=== PATIENT | female | born 1955 | race Caucasian/White ===

== ENCOUNTER → 2020-05-13 | Outpatient (CLI) | payer MEDICARE | LOC: RAD 07:30 | DX: E21.5 Disorder of parathyroid gland, unspecified (principal) ==

== ENCOUNTER → 2020-07-29 | Outpatient (CLI) | payer MEDICARE ==
[2020-07-29 16:06] LABS: EOS # 0.1 (0.04-0.40); EOS % 2.5 % (1.0-5.0); HEMATOCRIT 41.3 % (37.0-47.0); HEMOGLOBIN 13.2 g/dL (12.5-16.0); LYMPH# 1.8 (1.50-4.00); MEAN CELL VOLUME 90 fl (78-100); MEAN CORPUSCULAR HEMOGLOBIN 29 pg (27-31); MEAN CORPUSCULAR HGB CONC 32 g/dL (33-37); MEAN PLATELET VOLUME 9.3 fl (7.4-10.4); MONO # 0.4 (0.20-0.80); NEU # 3.2 (1.40-6.50); PLATELET COUNT 256 K/mm3 (130-400); RED BLOOD COUNT 4.59 M/mm3 (4.10-5.30); RED CELL DISTRIBUTION WIDTH 13.4 % (11.5-14.5); WHITE BLOOD COUNT 5.5 K/mm3 (4.8-10.8)
[2020-07-29 16:16] LABS: ALBUMIN 4.2 g/dL (3.4-4.8); POTASSIUM 4.5 mmol/L (3.5-5.1)
[2020-07-29 16:17] LABS: CALCIUM 9.5 mg/dL (8.3-10.5)
[2020-07-29 16:18] LABS: TOTAL PROTEIN 7.2 g/dL (6.2-8.1)
[2020-07-29 16:20] LABS: TOTAL BILIRUBIN 0.3 mg/dL (0.2-1.2)
[2020-07-29 16:25] LABS: MAGNESIUM 1.95 mg/dL (1.60-2.60)
== END ==
LOC: LAB 15:53
PROVIDERS: Family Medicine
DX: L23.9 Allergic contact dermatitis, unspecified cause (principal); R53.83 Other fatigue

== ENCOUNTER → 2020-08-03 | Outpatient (CLI) | payer MEDICARE ==
[2020-08-05 13:22] LABS: ANA SCREEN with REFLEX Negative (Negative)
== END ==
LOC: LAB 15:34
PROVIDERS: Physician Assistant
DX: Z01.89 Encounter for other specified special examinations (principal)

== ENCOUNTER → 2020-08-26 | Outpatient (CLI) | payer MEDICARE ==
[2020-08-26 07:51] LABS: HEMATOCRIT 40.5 % (37.0-47.0); MEAN PLATELET VOLUME 9.6 fl (7.4-10.4); RED BLOOD COUNT 4.49 M/mm3 (4.10-5.30); RED CELL DISTRIBUTION WIDTH 13.7 % (11.5-14.5); WHITE BLOOD COUNT 4.7 K/mm3 (4.8-10.8)
[2020-08-26 07:59] LABS: POTASSIUM 4.1 mmol/L (3.5-5.1)
[2020-08-26 08:00] LABS: CALCIUM 9.1 mg/dL (8.3-10.5)
[2020-08-26 08:01] LABS: TOTAL PROTEIN 6.7 g/dL (6.2-8.1)
[2020-08-26 08:03] LABS: TOTAL BILIRUBIN 0.4 mg/dL (0.2-1.2)
[2020-08-27 19:07] LABS: ANA SCREEN with REFLEX Negative (Negative)
== END ==
LOC: LAB 07:00
PROVIDERS: Family Medicine
DX: Z13.6 Encounter for screening for cardiovascular disorders (principal); E55.9 Vitamin D deficiency, unspecified; E21.3 Hyperparathyroidism, unspecified; E07.9 Disorder of thyroid, unspecified; K57.90 Diverticulosis of intestine, part unspecified, without perforation or abscess without bleeding

== ENCOUNTER → 2020-09-29 | Outpatient (CLI) | payer MEDICARE ==
[2020-09-29 16:17] LABS: EOS # 0.2 (0.04-0.40); EOS % 3.6 % (1.0-5.0); HEMATOCRIT 41.5 % (37.0-47.0); HEMOGLOBIN 13.3 g/dL (12.5-16.0); LYMPH# 1.7 (1.50-4.00); MEAN CELL VOLUME 91 fl (78-100); MEAN CORPUSCULAR HEMOGLOBIN 29 pg (27-31); MEAN CORPUSCULAR HGB CONC 32 g/dL (33-37); MEAN PLATELET VOLUME 9.4 fl (7.4-10.4); MONO # 0.4 (0.20-0.80); NEU # 3.2 (1.40-6.50); PLATELET COUNT 264 K/mm3 (130-400); RED BLOOD COUNT 4.57 M/mm3 (4.10-5.30); RED CELL DISTRIBUTION WIDTH 13.7 % (11.5-14.5); WHITE BLOOD COUNT 5.5 K/mm3 (4.8-10.8)
[2020-10-01 09:40] LABS: CANDIDA ALBICANS ALLERGN COUNT <0.10 kU/L (())
== END ==
LOC: LAB 15:59
PROVIDERS: Family Medicine
DX: B49 Unspecified mycosis (principal); T78.40XA Allergy, unspecified, initial encounter

== ENCOUNTER → 2020-12-16 | Outpatient (CLI) | payer MEDICARE ==
[2020-12-16 09:27] LABS: EOS # 0.1 (0.04-0.40); EOS % 1.6 % (1.0-5.0); HEMATOCRIT 44.3 % (37.0-47.0); HEMOGLOBIN 13.9 g/dL (12.5-16.0); LYMPH# 1.7 (1.50-4.00); MEAN CELL VOLUME 91 fl (78-100); MEAN CORPUSCULAR HEMOGLOBIN 28 pg (27-31); MEAN CORPUSCULAR HGB CONC 31 g/dL (33-37); MEAN PLATELET VOLUME 9.2 fl (7.4-10.4); MONO # 0.2 (0.20-0.80); NEU # 2.3 (1.40-6.50); PLATELET COUNT 245 K/mm3 (130-400); RED BLOOD COUNT 4.89 M/mm3 (4.10-5.30); RED CELL DISTRIBUTION WIDTH 14.1 % (11.5-14.5); WHITE BLOOD COUNT 4.4 K/mm3 (4.8-10.8)
[2020-12-16 09:35] LABS: ALBUMIN 4.4 g/dL (3.4-4.8); POTASSIUM 4.2 mmol/L (3.5-5.1)
[2020-12-16 09:36] LABS: CALCIUM 9.4 mg/dL (8.3-10.5)
[2020-12-16 09:38] LABS: TOTAL PROTEIN 7.8 g/dL (6.2-8.1)
[2020-12-16 09:39] LABS: TOTAL BILIRUBIN 0.4 mg/dL (0.2-1.2)
[2020-12-17 06:46] LABS: ALTERNARIA TENUIS CNT <0.10 kU/L (()); ASPERGILLUS FUMIGATUS AL COUNT <0.10 kU/L (()); AUREOBASIDIUM PULLULANS CNT <0.10 kU/L (()); CANDIDA ALBICANS ALLERGN COUNT <0.10 kU/L (()); CLADOSPORIUM ALLERGEN COUNT <0.10 kU/L (()); EPICOCCUM PURPURANCEN AL COUNT <0.10 kU/L (()); FUSARIUM MONILIFORME ALL COUNT <0.10 kU/L (()); MUCOR RACEMOSUS ALLERGEN COUNT <0.10 kU/L (()); PENICILLIUM NOTATUM ALLR COUNT <0.10 kU/L (()); PHOMA BETAE ALLERGEN COUNT <0.10 kU/L (()); STEMPHYLIUM BOTRYOSUM AL COUNT <0.10 kU/L (())
== END ==
LOC: LAB 09:06
PROVIDERS: Family Medicine
DX: I10 Essential (primary) hypertension (principal); E78.5 Hyperlipidemia, unspecified; B49 Unspecified mycosis

== ENCOUNTER → 2022-06-20 | Outpatient (CLI) | payer MEDICARE ==
[2022-06-20 17:23] LABS: BASO # 0.02 K/mm3 (0.02-0.10); EOS # 0.08 K/mm3 (0.04-0.40); EOS % 1.6 % (1.0-5.0); HEMATOCRIT 38.5 % (37.0-47.0); HEMOGLOBIN 12.3 g/dL (12.5-16.0); LYMPH# 1.95 K/mm3 (1.50-4.00); MEAN CELL VOLUME 93 fl (78-100); MEAN CORPUSCULAR HEMOGLOBIN 30 pg (27-31); MEAN CORPUSCULAR HGB CONC 32 g/dL (33-37); MEAN PLATELET VOLUME 8.7 fl (7.4-10.4); MONO # 0.34 K/mm3 (0.20-0.80); NEU # 2.63 K/mm3 (1.40-6.50); PLATELET COUNT 233 K/mm3 (130-400); RED BLOOD COUNT 4.14 M/mm3 (4.10-5.30); RED CELL DISTRIBUTION WIDTH 13.1 % (11.5-14.5)
[2022-06-20 17:35] LABS: ALBUMIN 4.1 g/dL (3.4-4.8); POTASSIUM 4.5 mmol/L (3.5-5.1)
[2022-06-20 17:37] LABS: TOTAL PROTEIN 7.1 g/dL (6.2-8.1)
[2022-06-20 17:39] LABS: TOTAL BILIRUBIN 0.3 mg/dL (0.2-1.2)
== END ==
LOC: LAB 17:08
PROVIDERS: Family Medicine
DX: Z00.00 Encounter for general adult medical examination without abnormal findings (principal); Z12.11 Encounter for screening for malignant neoplasm of colon; Z11.1 Encounter for screening for respiratory tuberculosis; I10 Essential (primary) hypertension; E03.9 Hypothyroidism, unspecified; E55.9 Vitamin D deficiency, unspecified; J30.2 Other seasonal allergic rhinitis; F41.9 Anxiety disorder, unspecified; E78.5 Hyperlipidemia, unspecified

== ENCOUNTER → 2024-12-28 | Outpatient (CLI) | payer MEDICARE ==
[2024-12-28 17:01] LABS: BASO # 0.03 K/mm3 (0.02-0.10); EOS # 0.12 K/mm3 (0.04-0.40); EOS % 1.5 % (1.0-5.0); HEMATOCRIT 42.2 % (37.0-47.0); HEMOGLOBIN 13.4 g/dL (12.5-16.0); LYMPH# 2.38 K/mm3 (1.50-4.00); MEAN CELL VOLUME 92 fl (78-100); MEAN CORPUSCULAR HEMOGLOBIN 29 pg (27-31); MEAN CORPUSCULAR HGB CONC 32 g/dL (33-37); MEAN PLATELET VOLUME 8.8 fl (7.4-10.4); MONO # 0.47 K/mm3 (0.20-0.80); NEU # 5.19 K/mm3 (1.40-6.50); PLATELET COUNT 309 K/mm3 (130-400); WHITE BLOOD COUNT 8.2 K/mm3 (4.8-10.8)
[2024-12-28 17:17] LABS: ALBUMIN 4.2 g/dL (3.4-4.8)
[2024-12-28 17:18] LABS: CALCIUM 9.6 mg/dL (8.3-10.5)
[2024-12-28 17:19] LABS: TOTAL PROTEIN 8.3 g/dL (6.2-8.1)
[2024-12-28 17:21] LABS: TOTAL BILIRUBIN 0.3 mg/dL (0.2-1.2)
== END ==
LOC: LAB 16:45
PROVIDERS: Family Medicine
DX: I10 Essential (primary) hypertension (principal); E03.9 Hypothyroidism, unspecified; E55.9 Vitamin D deficiency, unspecified; E78.5 Hyperlipidemia, unspecified